=== PATIENT | male | born 1960 | race African-American/Black ===

== ENCOUNTER 2019-09-21 23:33 | Emergency (ER) | payer OTHER ==
[~2019-09-21] VITALS: Ht 175.3 cm; Wt 83.9 kg
[2019-09-22 00:20] VITALS: BP_SYST 139
[2019-09-22 02:28] VITALS: BP_SYST 132
== END 2019-09-22 02:28 | disposition home or self-care (01) ==
LOC: SED 23:33
DX: K42.9 Umbilical hernia without obstruction or gangrene (principal)
CPT/HCPCS: 99281

== ENCOUNTER 2022-03-12 02:20 | Emergency (ER) | payer OTHER ==
[~2022-03-12] VITALS: Ht 177.8 cm; Wt 95.3 kg
[2022-03-12 03:05] VITALS: BP_SYST 170
[2022-03-12] MEDS ORDERED: MORPHINE SULFATE 10 MG/ML VIAL IM ONE (03:45)
--- NOTE | 2022-03-12 05:21 | NUR ---
RECEIVED REPORT FROM LEDY KWOK. PATIENT NOT IN ROOM AT THIS TIME. PER LEDY KWOK PATIENT OVER IN RADIOLOGY FOR CT SCAN.
[2022-03-12 05:24] LABS: BASOPHILS % (AUTO) 0.7 % (0.0-2.0); EOSINOPHILS # (AUTO) 0.1 K/uL (0.0-0.4); EOSINOPHILS % (AUTO) 1.3 % (0.0-4.0); LYMPHOCYTES # (AUTO) 1.2 K/uL (1.0-5.5); LYMPHOCYTES % (AUTO) 17.4 % (20.5-51.5); MEAN CORPUSCULAR VOLUME 82 fL (79.0-98.0); MONOCYTES # (AUTO) 0.6 K/uL (0.0-1.0); MONOCYTES % (AUTO) 8.4 % (1.7-9.3); NEUTROPHILS # (AUTO) 4.9 K/uL (1.8-7.7); NEUTROPHILS % (AUTO) 72.2 % (40.0-70.0); PLATELET COUNT (AUTO) 156 K/uL (130-430); WHITE BLOOD COUNT (AUTO) 6.7 K/uL (4.8-10.8)
[2022-03-12 05:39] LABS: CALCIUM 8.8 mg/dL (8.4-11.0); CREATININE 1.19 mg/dL (0.55-1.30)
--- NOTE | 2022-03-12 05:42 | NUR ---
PATIENT RETURNS FROM RADIOLOGY VIA STRETCHER. RESULTS PENDING. PLACED BACK ON EXTRUSION LINE OPERATOR.
[2022-03-12 05:45] LABS: ALBUMIN 3.5 g/dL (3.4-4.8); TOTAL BILIRUBIN 0.7 mg/dL (0.0-1.0)
--- NOTE | 2022-03-12 05:50 | NUR ---
CARE ASSUMED. HE REPORTS THAT HE HAS UNSTEADY GAIT D/T LEFT HIP PAIN AND FELL TODAY WHILE AT HOME LANDING ON HIS LEFT SIDE AND BACK. HE DENIES LOC OR HITTING HIS HEAD. DENIES USE OF ASSISTIVE DEVICES AT HOME. AT BEDSIDE. IMPROVEMENT AUDITOR SHOWING NSR. HE RECEIVED MORPHINE IM PRIOR TO GOING TO RADIOLOGY. CURRENTLY RATES PAIN 3/10 ON SCALE. HE DENIES PARESTHESIA OR B/B INCONTINENCE. LYING SEMI FOWLERS ON STRETCHER RESTING COMFORTABLY AT THIS TIME. BED IN LOW POSITION, WHEELS LOCKED AND SR UP X 2 FOR SAFETY. WILL CONTINUE TO MONITOR.
[2022-03-12 06:04] LABS: ERYTHROCYTE SEDIMENTATION RATE 6 MM/HR (0-15)
--- NOTE | 2022-03-12 06:45 | NUR ---
DAY SHIFT MD AT BEDSIDE.
--- NOTE | 2022-03-12 06:54 | NUR ---
TRANSPORTED TO RADIOLOGY FOR CT SCAN VIA STRETCHER BY Shiram [employer].
--- NOTE | 2022-03-12 07:04 | NUR ---
REPORT AND CARE ENDORSED TO LEDY MENENDEZ. PATIENT OVER TO RADIOLOGY FOR CT. REMAINS AT BEDSIDE.
--- NOTE | 2022-03-12 07:15 | NUR ---
ASSUMED CARE FROM NOC RN. PT BACK TO UNIT FROM CT. NAD NOTED. DENIES ANY PAIN. AT BS. CT RESULTS PENDING.
[2022-03-12 09:53] VITALS: BP_SYST 121
--- NOTE | 2022-03-12 09:54 | NUR ---
PT CLEARED FOR DC BY DR. GUTIERREZ. RX GIVEN. VSS, AFEBRILE. DENIES PAIN. PT PLACED IN WHEELCHAIR AND BROUGHT TO VEHICLE. PT'S DROVE PT HOME.
[2022-03-12] MEDS ORDERED: HYDR-3917 PO (10:19)
== END 2022-03-12 09:55 | disposition home or self-care (01) ==
LOC: SED 02:20
DX: M25.552 Pain in left hip (principal); Z88.4 Allergy status to anesthetic agent; Z79.899 Other long term (current) drug therapy
CPT/HCPCS: 99284; 73700; 80053; 85025; 85651; 86140; 36415; 76376; 96372; 83605; J2270

== ENCOUNTER 2023-06-07 21:55 | Emergency (ER) | payer OTHER ==
[~2023-06-07] VITALS: Ht 172.7 cm; Wt 127.0 kg
[~2023-06-07 21:55] MED LIST: HYDR-3917 PO
[2023-06-07 22:10] VITALS: BP_SYST 122; PULSE 107; RESP 19; TEMP 97.9; O2SAT 99
[2023-06-08] MEDS ORDERED: KETOROLAC TROMETHAMINE 60 MG/2 ML VIAL IM ONE (00:15)
[2023-06-08 01:06] VITALS: BP_SYST 127; PULSE 98; RESP 19; TEMP 97.9; O2SAT 100
== END 2023-06-08 01:05 | disposition home or self-care (01) ==
LOC: SED 21:55
DX: U07.1 COVID-19 (principal); G89.29 Other chronic pain; M54.50 Low back pain, unspecified; R07.9 Chest pain, unspecified; E11.9 Type 2 diabetes mellitus without complications; I10 Essential (primary) hypertension; K21.9 Gastro-esophageal reflux disease without esophagitis; Z88.4 Allergy status to anesthetic agent; Z79.899 Other long term (current) drug therapy
CPT/HCPCS: 99283; 93005; 96372; J1885

== ENCOUNTER 2023-09-15 11:17 | Emergency (ER) | payer OTHER ==
[~2023-09-15] VITALS: Ht 175.3 cm; Wt 132.9 kg
[2023-09-15 11:27] VITALS: BP_SYST 105; PULSE 78; RESP 18; TEMP 97.4; O2SAT 99
[2023-09-15] MEDS: KETOROLAC TROMETHAMINE 15 MG VIAL IM ONE (11:58)
[2023-09-15] MEDS: traMADol HCL HCL 50 MG TABLET (ULTRAM) PO ONE (11:59)
[2023-09-15 12:01] LABS: BILIRUBIN,URINE NEGATIVE (NEGATIVE); BLOOD, URINE NEGATIVE (NEGATIVE); CLARITY/URINE CLEAR (CLEAR); COLOR,URINE YELLOW (YELLOW); GLUCOSE,URINE NEGATIVE (NEGATIVE); KETONES,URINE NEGATIVE (NEGATIVE); LEUKOCYTE ESTERASE ,URINE NEGATIVE (NEGATIVE); NITRITE, URINE NEGATIVE (NEGATIVE); PH,URINE 5.5 (5.0-8.0); PROTEIN URINE NEGATIVE (NEGATIVE); UROBILINOGEN,URINE 0.2 (0.2-1.0)
[2023-09-15] MEDS ORDERED: HYDR-3917 PO (12:34)
[2023-09-15 14:00] VITALS: BP_SYST 105; PULSE 78; RESP 18; TEMP 97.4; O2SAT 99
== END 2023-09-15 13:57 | disposition home or self-care (01) ==
LOC: SED 11:17
DX: M54.30 Sciatica, unspecified side (principal); E11.9 Type 2 diabetes mellitus without complications; I10 Essential (primary) hypertension; K21.9 Gastro-esophageal reflux disease without esophagitis; Z88.4 Allergy status to anesthetic agent; Z79.899 Other long term (current) drug therapy
CPT/HCPCS: 99285; 93970; 81001; 72100; 96372; 81003; J1885

== ENCOUNTER 2024-03-29 21:06 | Emergency (ER) | payer OTHER ==
[~2024-03-29] VITALS: Ht 175.3 cm; Wt 127.5 kg
[2024-03-29 21:28] VITALS: BP_SYST 144; PULSE 122; RESP 17; TEMP 98.7; O2SAT 96
[2024-03-29] MEDS ORDERED: AUG875 PO (22:29)
[2024-03-29] MEDS ORDERED: CIPR10DR17 OT (22:29)
[2024-03-29] MEDS: ACETAMINOPHEN 325 MG TABLET PO ONE (22:34)
[2024-03-29 22:43] VITALS: BP_SYST 143; PULSE 98; RESP 17; O2SAT 97
== END 2024-03-29 22:45 | disposition home or self-care (01) ==
LOC: SED 21:06
DX: H66.91 Otitis media, unspecified, right ear (principal); H60.91 Unspecified otitis externa, right ear; I10 Essential (primary) hypertension; E11.9 Type 2 diabetes mellitus without complications; K21.9 Gastro-esophageal reflux disease without esophagitis; Z88.4 Allergy status to anesthetic agent; Z79.899 Other long term (current) drug therapy
CPT/HCPCS: 99283